=== PATIENT | female | born 1960 | race Caucasian/White ===

== ENCOUNTER 2016-10-12 20:08 | Emergency (ER) | payer SELFPAY ==
[~2016-10-12] VITALS: Ht 165.1 cm; Wt 63.5 kg
--- NOTE | 2016-10-12 21:15 | NUR ---
SEE TRIAGE FOR INITIAL C/O.
[2016-10-12 21:23] LABS: BASOPHILS % (AUTO) 0.8 % (0.0-2.0); EOSINOPHILS # (AUTO) 0.1 /CMM (0.0-0.7); EOSINOPHILS % (AUTO) 2.3 % (0.0-6.0); HEMATOCRIT 38 % (33-45); HEMOGLOBIN 12.7 g/dL (11.5-14.8); LYMPHOCYTES # (AUTO) 1.7 /CMM (0.8-4.8); LYMPHOCYTES % (AUTO) 34.5 % (20.0-44.0); MEAN CORPUSCULAR HEMOGLOBIN 31 PG (26.0-33.0); MEAN CORPUSCULAR HGB CONC 34 g/dl (31.0-36.0); MEAN CORPUSCULAR VOLUME 92 fL (82-100); MONOCYTES # (AUTO) 0.3 /CMM (0.1-1.30); MONOCYTES % (AUTO) 5.5 % (2.0-12.0); NEUTROPHILS # (AUTO) 2.8 /CMM (1.8-8.9); NEUTROPHILS % (AUTO) 56.9 % (43.0-81.0); PLATELET COUNT (AUTO) 387 /CMM (150-450); RDW COEFFICIENT OF VARIATION 12.5 (11.5-15.0); RED BLOOD CELL COUNT(AUTO) 4.07 MIL/uL (4.0-5.2); WHITE BLOOD COUNT (AUTO) 4.9 K/uL (4.3-11.0)
[2016-10-12 21:34] LABS: CALCIUM, SERUM 8.6 mg/dL (8.5-10.1); CREATININE 0.8 mg/dL (0.6-1.3); POTASSIUM 3.8 mmol/L (3.5-5.1)
[2016-10-12 21:39] LABS: ALBUMIN 3.7 g/dL (3.4-5.0); BILIRUBIN,DIRECT 0.1 mg/dL (0.0-0.2); BILIRUBIN,TOTAL 0.2 mg/dL (0.2-1.0); TOTAL PROTEIN, SERUM 7.3 g/dL (6.4-8.2)
[2016-10-12 21:40] LABS: SALICYLATE 2.4 mg/dL (2.8-20.0)
--- NOTE | 2016-10-12 22:08 | NUR ---
INOCENTE Stovall called for psych eval.
--- NOTE | 2016-10-12 23:02 | NUR ---
CAYDEN CRISIS TEAM AT BEDSIDE.
--- NOTE | 2016-10-13 00:12 | NUR ---
NO CHANGES NOTED OR REPORTED. RESP EVEN AND UNLABORED. STILL MONITORED.
--- NOTE | 2016-10-13 01:15 | NUR ---
ER 4 HOUR OBS RECOMMENDED BY POISON CONTROL ENDS AT 0200; PT AWARE AND AWAITS THAT TIME. DENIES SI/HI OR ANY SX'S AT THIS TIME
--- NOTE | 2016-10-13 02:23 | NUR ---
AMBULATORY WITH STEADY GAIT. STILL DENIES SI/HI. CALLING FOR RIDE.
[2016-10-13 02:24] VITALS: BP 112/72
--- NOTE | 2016-10-13 02:35 | NUR ---
Patient discharged to home in stable condition. Written and verbal after care instructions given. Patient verbalizes understanding of instruction. Ambulatory with a steady gait
== END 2016-10-13 02:35 | disposition home or self-care (01) ==
LOC: ER 20:20
DX: T51.91XA Toxic effect of unspecified alcohol, accidental (unintentional), initial encounter (principal); F32.9 Major depressive disorder, single episode, unspecified; Y92.89 Other specified places as the place of occurrence of the external cause
CPT/HCPCS: 36415; 80048-TC; 80076-TC; 80305; 85025-TC; A4606; G0480; Z7610